=== PATIENT | male | born 1960 | race Caucasian/White ===

== ENCOUNTER 2016-07-12 21:16 | Emergency (ER) | payer MEDICARE, OTHER, MEDICAID ==
[2016-07-12 21:43] LABS: PROTHROMBIN TIME 13.6 SEC (11.4-15.4)
[2016-07-12 21:44] LABS: PARTIAL THROMBOPLASTIN TIME 26.9 SEC (23.5-35.8)
[2016-07-12 21:46] LABS: ABSOLUTE EOSINOPHILS # (AUTO) 0.2 10^3/uL (0.0-0.6); ABSOLUTE LYMPHOCYTES (AUTO) 3.4 10^3/uL (0.5-4.7); ABSOLUTE MONOCYTES (AUTO) 0.5 10^3/uL (0.1-1.4); ABSOLUTE NEUT (AUTO) 2.1 10^3/uL (1.7-8.2); BASOPHILS % (AUTO) 0.5 % (0-2); EOSINOPHILS % (AUTO) 3.1 % (0-6); HEMATOCRIT 46.5 % (37.9-51.0); HEMOGLOBIN 15.6 g/dL (13.5-17.0); HGB HCT DIFFERENCE 0.3; LYMPHOCYTES % (AUTO) 54.6 % (13-45); MEAN CORPUSCULAR HEMOGLOBIN 30.1 pg (27.0-33.4); MEAN CORPUSCULAR HGB CONC 33.5 g/dL (32.0-36.0); MEAN CORPUSCULAR VOLUME 90 fl (80-97); MONOCYTES % (AUTO) 7.3 % (3-13); RED BLOOD COUNT 5.18 10^6/uL (4.35-5.55); RED CELL DISTRIBUTION WIDTH 13.7 % (11.5-14.0); SEGMENTED NEUTROPHILS % (AUTO) 34.5 % (42-78); WHITE BLOOD COUNT 6.2 10^3/uL (4.0-10.5)
[2016-07-12 22:04] LABS: ALANINE AMINOTRANSFERASE 82 U/L (21-72); ALBUMIN 3.9 g/dL (3.5-5.0); ALKALINE PHOSPHATASE 107 U/L (38-126); ANION GAP 14 (5-19); ASPARTATE AMINO TRANSFERASE 44 U/L (17-59); BILIRUBIN,TOTAL 0.8 mg/dL (0.2-1.3); BLOOD UREA NITROGEN 11 mg/dL (7-20); CALCIUM 9.8 mg/dL (8.4-10.2); CARBON DIOXIDE 25 mmol/L (22-30); CHLORIDE 106 mmol/L (98-107); CREATINE KINASE 47 U/L (55-170); CREATININE RESULT 1.08 mg/dL (0.52-1.25); GLUCOSE 111 mg/dL (75-110); POTASSIUM 4.4 mmol/L (3.6-5.0); SODIUM 145.2 mmol/L (137-145); TOTAL PROTEIN 7.7 g/dL (6.3-8.2)
[2016-07-12 22:14] LABS: CREATINE KINASE MB 0.56 ng/mL (<4.55)
[2016-07-12 22:33] LABS: TROPONIN I < 0.012 ng/mL
--- NOTE | 2016-07-12 22:40 | ER Document Report ---
ED General - General Chief Complaint: S/S of Possible Stroke Stated Complaint: POSSIBLE STROKE Cannot obtain history due to: Mentally challenged Notes: Patient is a 55-year-old with past medical history of Down syndrome, dementia, hypothyroidism who presents with a left-sided facial droop after having a witnessed tonic-clonic seizure. Patient does have a known history of seizures and had 3 in total today which mother states is not abnormal. He did have a generalized seizure that lasted approximately 1-2 minutes and then resolved. After the seizure mother noted a left-sided facial droop so she activated EMS. Patient himself is nonverbal and unable to provide any meaningful history. He is currently on hospice. Mother states that normally patient will talk but today he has not been talking at all and he does go through days where he has minimal verbal content. She denies a history of similar symptoms in the past. Nothing improves or worsens the symptoms. TRAVEL OUTSIDE OF THE [place] IN LAST 30 DAYS: No - Related Data Allergies/Adverse Reactions: Penicillins Allergy (Verified 12/27/15 11:11) Induced Seizure Past Medical History - General Information source: Parent - Social History Smoking Status: Never Smoker Frequency of alcohol use: None Drug Abuse: None Lives with: Family Family History: Reviewed & Not Pertinent - Past Medical History Cardiac Medical History: Reports: Hx Hypertension Pulmonary Medical History: Reports: Hx Bronchitis, Hx Sleep Apnea - No CPAP use for the past 10 years, per physician instructions Denies: Hx Tuberculosis Neurological Medical History: Reports: Hx Seizures Endocrine Medical History: Reports: Hx Hypothyroidism Psychiatric Medical History: Reports: Hx Dementia Denies: Hx Depression Past Surgical History: Reports: Other - Uncertain - Immunizations Hx Diphtheria, Pertussis, Tetanus Vaccination: Yes Review of Systems - Review of Systems -: Yes ROS unobtainable due to patient's medical condition Physical Exam - Vital signs Vitals: Pulse Resp BP Pulse Ox 79 14 120/86 H 97 07/12/16 21:20 07/12/16 21:20 07/12/16 21:20 07/12/16 21:20 Interpretation: Normal Notes: PHYSICAL EXAMINATION: GENERAL: Appears stated age. Apparent features of trisomy 21 HEAD: Atraumatic, normocephalic. EYES: Pupils equal round and reactive to light, extraocular movements intact, sclera anicteric, conjunctiva are normal. ENT: nares patent, oropharynx clear without exudates. Moderately dry mucous membranes. NECK: Normal range of motion, supple without lymphadenopathy LUNGS: Breath sounds clear to auscultation bilaterally and equal. No wheezes rales or rhonchi. HEART: Regular rate and rhythm without murmurs ABDOMEN: Soft, nontender, normoactive bowel sounds. No guarding, no rebound. No masses appreciated. EXTREMITIES: Normal range of motion, no pitting or edema. No cyanosis. NEUROLOGICAL: Unable to perform full strength testing secondary to cognitive impairment. Initially had a left-sided facial droop which has completely resolved at the time of my assessment PSYCH: Nonverbal SKIN: Warm, Dry, normal turgor, no rashes or lesions noted. Course - Re-evaluation Re-evalutation: 07/12/16 22:38 Patient presents with acute onset of a left facial droop after having a seizure. This facial droop resolved within approximately one hour arrival here to the emergency department. This is most consistent with a Anthony's paralysis as opposed to a CVA or TIA. Patient is not a candidate for TPA for a multitude of reasons and at time of evaluation he has no neurologic deficit to indicate administration of this medication. Laboratories, CT the head and chest x-ray are all unremarkable as were obtained per protocol. At this time will discharge with return precautions and follow-up recommendations. Verbal discharge instructions given a the bedside and opportunity for questions given. Medication warnings reviewed. Patient is in agreement with this plan and has verbalized understanding of return precautions and the need for primary care follow-up in the next 24-72 hours. - Vital Signs Vital signs: Temp Pulse Resp BP Pulse Ox 79 12 110/74 99 07/12/16 21:20 07/13/16 00:03 07/13/16 00:03 07/13/16 00:03 - Laboratory Result Diagrams: 07/12/16 21:30 07/12/16 21:30 Laboratory results interpreted by me: 07/12/16 07/12/16 21:30 21:30 Seg Neutrophils % 34.5 L Lymphocytes % 54.6 H Sodium 145.2 H Glucose 111 H ALT 82 H Creatine Kinase 47 L - Diagnostic Test Radiology reviewed: Reports reviewed - EKG Interpretation by Me Additional EKG results interpreted by me: 07/12/16 22:39 Normal sinus rhythm. Rate 78. No ST elevations or depressions. QTC is 424. Discharge - Discharge Clinical Impression: Anthony's paralysis Condition: Good Disposition: HOME, SELF-CARE Additional Instructions: Your son symptoms are due to his seizure and should completely resolve in the next several days. Please follow-up with your primary care doctor in the next 1 -2 days. Return for any new or concerning symptoms including weakness, numbness , recurrence of his facial droop, vomiting, fever or any other symptoms that are worrisome to you.
[2016-07-13 00:23] VITALS: BP 110/74
--- NOTE | 2016-07-13 09:14 | EKG REPORT ---
SEVERITY:- BORDERLINE ECG - SINUS RHYTHM INDETERMINATE QRS AXIS LOW VOLTAGE WITH RIGHT AXIS DEVIATION : Confirmed by: Santosh Isidro MD 13-Jul-2016 09:13:01
== END 2016-07-13 00:05 | disposition home or self-care (01) ==
LOC: ER 21:16
DX: G83.84 Todd's paralysis (postepileptic) (principal); Q90.9 Down syndrome, unspecified; I10 Essential (primary) hypertension; Z88.0 Allergy status to penicillin
CPT/HCPCS: 36415; 70450; 71010; 80053; 82550; 82553; 82962; 84484; 85025; 85610; 85730; 93005; 93010; 99285